=== PATIENT | male | born 1965 | race Caucasian/White ===

== ENCOUNTER 2017-08-11 09:43 | Emergency (ER) | payer OTHER ==
[~2017-08-11] VITALS: Ht 193 cm; Wt 84.5 kg
[2017-08-11 09:46] VITALS: BP 132/90
[2017-08-11] MEDS ORDERED: NAPROXEN500 MG PO (11:31)
[2017-08-11] MEDS ORDERED: FLEXERIL10 MG PO (11:31)
[2017-08-11] MEDS ORDERED: MEDROL DOSEPAK4 MG PO (11:31)
== END 2017-08-11 12:10 | disposition home or self-care (01) ==
LOC: EME 09:43
DX: M54.5 Low back pain (principal); F17.200 Nicotine dependence, unspecified, uncomplicated
CPT/HCPCS: 99281; 99284; J1885